=== PATIENT | female | born 1950 | race Caucasian/White ===

== ENCOUNTER 2017-08-09 06:04 | Emergency (ER) | payer MEDICARE ==
[~2017-08-09] VITALS: Ht 157.5 cm; Wt 70.0 kg
[2017-08-09 06:07] VITALS: BP 138/87
[2017-08-09] MEDS ORDERED: HYDR-565 PO (06:50)
[2017-08-09] MEDS ORDERED: HYDROcodone/acetaminophen 10/325mg tab PO ONE (06:50)
[2017-08-09] MEDS ORDERED: ibuprofen tablet 400 MG TABLET PO ONE (07:00)
== END 2017-08-09 07:26 | disposition home or self-care (01) ==
LOC: ER 06:06
DX: M25.461 Effusion, right knee (principal); G89.29 Other chronic pain
CPT/HCPCS: 73564; 99284